=== PATIENT | male | born 1990 | race Two or more races ===

== ENCOUNTER 2018-07-07 14:16 | Emergency (ER) | payer SELFPAY ==
[~2018-07-07] VITALS: Ht 175.3 cm; Wt 120.0 kg
[2018-07-07 14:37] VITALS: BP 116/64
== END 2018-07-07 15:05 | disposition left against medical advice (07) ==
LOC: EMS 14:17
DX: T40.7X1A Poisoning by cannabis (derivatives), accidental (unintentional), initial encounter (principal); Y92.89 Other specified places as the place of occurrence of the external cause; Z53.21 Procedure and treatment not carried out due to patient leaving prior to being seen by health care provider